=== PATIENT | male | born 1940 | race Caucasian/White ===

== ENCOUNTER 2017-01-13 11:08 | Inpatient (IN) | payer MEDICARE, OTHER ==
--- NOTE | ~2017-01-13 | CN ---
Consultation Report [facility] [address] [place]. [address] NAME: JASIEL MOHAMUD : 39 STATUS : ADM IN PAT#: [id number] AGE: 76 ADM/REG DATE : 01/13/17 MR#: [id number] REPORT SERV DATE: 01/14/17 DICTATED BY: DELVIN HAIDER DATE: 01/14/17 REPORT STATUS : Draft TRANSCRIBED BY: MODAlvino DATE: 01/14/17 CARDIOLOGY CONSULTATION DATE OF CONSULTATION: INDICATION: Atrial flutter, rapid ventricular response; abnormal ECG; elevated troponins. HISTORY: The patient is a 76-year-old white male, normally followed by my partner, Dr. Watkins. He has a history of atrial arrhythmias with an atrial flutter ablation 04/13/2016 and atypical recurrence in the fall of 2015 with cardioversion 07/11/2016. At his last echo, his EF was 50-55%. There was mild RV systolic dysfunction. He has had previous low risk vasodilators stress test 02/20/2016. He does have calcific atherosclerosis of the abdominal aorta. He has had previous endarterectomies by Dr. Andrews. He has underlying type 2 diabetes mellitus. The patient states he was awakened from sleep with substernal chest discomfort and an irregular heart rate. He was taken to [facility] and subsequently transferred to [facility]. At [place], he was told he had pneumonia in the left lung field. He has had a slight cough, but it has not produced any purulent sputum. At this time, he is asymptomatic. Heart rate is in the 80 beats per minute range and irregular. He believes that he has been in sinus rhythm since May, although I do not have documentation of that. CURRENT HOME MEDICATIONS: Ascorbic acid 500 per day, B Complex daily, benazepril 40 a day, cholecalciferol 1000 per day, diltiazem ER 180 a day, folic acid 400 per day, insulin glargine q.a.m., metformin 850 b.i.d., omeprazole 20 a day, rivaroxaban 20 a day. ALLERGIES OR INTOLERANCES: Codeine, streptomycin, and clopidogrel (diarrhea). SOCIAL HISTORY: Smokes a pack per day x60 years. He is and lives alone. He has a younger sister, Gaby, who is a retired nurse from [employer] in attendance. FAMILY HISTORY: Mother had atrial fibrillation. Father had a stroke. PAST MEDICAL HISTORY/REVIEW OF SYSTEMS: Chronic atrial fibrillation according to notes, elevated troponins on current ECG with a level of 0.38 on the most recent labs. Community- acquired pneumonia, COPD with bronchiectasis, and history of peripheral vascular disease with left carotid endarterectomy. He has a history of systemic hypertension. PHYSICAL EXAMINATION: GENERAL: A 76-year-old white male, pleasant, alert, no acute distress. VITAL SIGNS: Blood pressure 148/66, pulse 78 and irregular. HEENT: He is normocephalic. There is no pallor. Sclerae white. Consultation Report [address] [place]. [address] NAME: JASIEL MOHAMUD : 39 STATUS : ADM IN [facility]#: [id number] AGE: 76 ADM/REG DATE : 01/13/17 MR#: [id number] REPORT SERV DATE: 01/14/17 DICTATED BY: DELVIN HAIDER DATE: 01/14/17 REPORT STATUS : Draft TRANSCRIBED BY: PACO DATE: 01/14/17 NECK: JVD is not elevated. There are no carotid bruits. CHEST: There is bilateral decreased breath sounds at the bases, right greater than left. CARDIAC: S1 variable, S2 singular. No gallops. ABDOMEN: Soft. EXTREMITIES: With trace edema. NEUROLOGIC: No focal deficits. MUSCULOSKELETAL: No kyphosis. There is sarcopenia throughout. LABORATORY DATA: ECG shows atrial fibrillation, presently with reasonable rate control. His initial ECG showed inverted T-waves in the precordial leads. BUN 13, creatinine 0.66. White count 7.7, hemoglobin 12.2. Baseline troponin 0.02, repeat 0.38. IMPRESSION: A 76-year-old white male with recent normal MPI, chronic underlying atrial fibrillation, diabetes mellitus, and dyslipidemia, now with ECG repolarization changes and elevated troponins. We will plan coronary angiography tomorrow. Hold Xarelnita carmichael. Risks and benefits have been discussed. PAPI/PACO Delvin Haider M.D. / [id number] CC: David Garcia M.D. [facility]
--- NOTE | ~2017-01-13 | DS ---
Discharge Summary [facility] [address] [place]. [address] NAME: JASIEL MOHAMUD : 39 STATUS : DIS IN PAT#: [id number] AGE: 76 ADM/REG DATE : 01/13/17 MR#: [id number] REPORT SERV DATE: 01/22/17 DICTATED BY: JAI SOTO DATE: 01/18/17 REPORT STATUS : Draft TRANSCRIBED BY: MODAlvino DATE: 01/18/17 ADMISSION DATE: 01/13/2017 DISCHARGE DATE: 01/18/2017 DISCHARGE DIAGNOSES: 1. Acute on chronic hypoxemic hypercapnic respiratory failure. 2. Community-acquired pneumonia. 3. Acute exacerbation of chronic obstructive pulmonary disease. 4. Acute exacerbation of bronchiectasis. 5. Lej-KJ-efullansm myocardial infarction. 6. Chronic atrial fibrillation. 7. Peripheral vascular disease with a left carotid endarterectomy. 8. Hypertension. 9. Type 2 diabetes mellitus with neuropathy. 10.Previous left carotid endarterectomy with disease. 11.Gastroesophageal reflux. 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 13.Prostate cancer post radiation therapy. 14.Voiding dysfunction post prostate cancer history. 15.History of colon polyps. 16.History of diverticulosis. 17.Fatty liver disease on imaging. 18.Gait disorder with history of falls and recurrent cane use. 19.Asymptomatic cholelithiasis. 20.Right ventricular systolic dysfunction documented on previous echo. CONSULTANTS DURING THIS HOSPITALIZATION: Dr. Juan Haider of Cardiology. INVASIVE PROCEDURES DONE DURING THIS HOSPITALIZATION: Cardiac catheterization with an RCA bare-metal stent. BRIEF HISTORY OF PRESENT ILLNESS: The patient is a 76-year-old white male, presented with some chest pain, shortness of breath, and respiratory failure, so he was admitted. For detailed history and physical exam, please see note dictated by Dr. Juan Ladd on 01/13/2017. HOSPITAL COURSE: After being admitted to the hospital, this patient was initially started on aggressive nebulizing treatments and also given broad-spectrum antibiotics. Blood cultures were done, which remained negative. Procalcitonin was normal as well. This patient then developed some cardiorespiratory distress, had a bump in his troponin, and was thought to have a byx-HN-bqgehgsan myocardial infarction. Cardiac catheterization was done and a bare- metal stent was deployed. Post cardiac catheterization, this patient had worsening of his respiratory failure and became more hypercapnic and had to be transferred to the intermediate care unit and BiPAP therapy was initiated within 24-48 hours of BiPAP therapy. This patient's respiratory condition in improved. When I took over this patient's care on 01/17/2017, this patient was doing well. He was already off the BiPAP. He was saturating Discharge Summary [place] [address] [place]. [address] NAME: JASEIL MOHAMUD : 39 STATUS : DIS IN PAT#: [id number] AGE: 76 ADM/REG DATE : 01/13/17 MR#: [id number] REPORT SERV DATE: 01/22/17 DICTATED BY: JAI SOTO DATE: 01/18/17 REPORT STATUS : Draft TRANSCRIBED BY: PACO DATE: 01/18/17 normal on minimal amounts of O2. He was transitioned from the [facility] to the intermediate care unit. Cardiology signed off his care after 24 hours and recommended continuing medications. He has been placed on Xarelto and Brilinta for the stent as well as his chronic atrial fibrillation. This patient is doing well. He is currently off O2. Physical therapy has seen the patient and patient is looking to be transferred to rehab. He remained stable medically otherwise and is being discharged in stable condition. DISCHARGE DISPOSITION: To rehab. DISCHARGE ACTIVITY: Per facility. DISCHARGE DIET: 1800-calorie [employer] diet. DISCHARGE MEDICATIONS: Vitamin C 500 mg once daily, benazepril 40 mg once daily, aspirin 81 mg once daily, Lipitor 40 mg once daily, Omnicef 300 mg twice daily for three more days to finish a course for treatment of pneumonia, vitamin D3 1000 units once daily, diltiazem ER 180 mg once daily, folic acid 400 mcg once daily, Lantus 30 units subcu once every morning, Lopressor 25 mg every eight hours, Lantus 4 units subcu at bedtime, Prilosec 20 mg once daily, Xarelto 15 mg once daily, Brilinta 90 mg every 12 hours, vitamin B Complex Stresstabs, Pulmicort Respules 1 mg twice daily, DuoNebs every four hours, metformin 850 mg p.o. twice daily. DISCHARGE FOLLOWUP: With Dr. John as scheduled by him. With primary care physician post rehab. More than 30 minutes spent planning this patient's discharge, reconciling medications, signing all forms for rehab, and documenting this discharge. ADDENDUM HOSPITAL COURSE: This patient was kept two days extra in the hospital awaiting a bed at [facility], however, even today that there are no beds available at [facility]. The patient's choice would change to [facility]. The patient is accepted to [facility] and will be transferred to [facility]. No other changes were made. He has finished the course of his Omnicef and Omnicef will be discontinued at discharge. He remained stable otherwise and is being discharged in stable condition. SETH/PACO Jai Soto M.D. / [id number] / [id number] CC: Discharge Summary [address] [address] NAME: JASIEL MOHAMUD : 39 STATUS : DIS IN PAT#: [id number] AGE: 76 ADM/REG DATE : 01/13/17 MR#: [id number] REPORT SERV DATE: 01/22/17 DICTATED BY: JAI SOTO DATE: 01/18/17 REPORT STATUS : Draft TRANSCRIBED BY: PACO DATE: 01/18/17 David Adan Jr., M.D.
--- NOTE | ~2017-01-13 | HP ---
History And Physical [place] [id number] [place]. [address] NAME: JASIEL SALGADO : 39 STATUS : ADM IN [facility]#: [id number] AGE: 76 ADM/REG DATE : 01/13/17 MR#: [id number] REPORT SERV DATE: 01/13/17 DICTATED BY: JUAN LADD DATE: 01/13/17 REPORT STATUS : Draft TRANSCRIBED BY: MODL DATE: 01/13/17 DATE OF ADMISSION: 01/13/2017 CHIEF COMPLAINT: This is a 76-year-old white male, resident of [facility], who is taken in transfer from [facility] Emergency Room with pneumonia and atrial fibrillation. The history was obtained from the ER physician at [facility], Dr. Jefferson, as well as from the patient in his room, his niece in his room, and review of medical records on [facility]. 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 He has been cutting brush and burning it with the assistance of someone else about 8 hours per day. He has been doing this for the last several days. He normally has some cough. He has had more cough over the last few days associated with some discolored sputum, but no blood. He has had some shortness of breath. On more than one occasion, he has had some dizziness and near syncope, and has had to sit down with improvement in his symptoms. He does not report any fever or chills. He normally has daytime and nighttime sweats which is unchanged. He got up to go to the bathroom early this morning. He began having some left chest pain which hurt when he took a deep breath. There was also a constant nature to it. He became more short of breath. He went to the [facility] Emergency Room. Initial evaluation there, O2 saturation 91% at 0435 hours, blood pressure 182/102, temp 97.8, pulse 145, respirations 20. At that facility, his evaluation included chemistries, blood gases, chest x-ray, EKG, and CTA chest. Working diagnoses, atrial fibrillation/flutter with rapid ventricular response and pneumonia. Cultures were obtained. He was started on azithromycin and ceftriaxone. He was given a DuoNeb. He was given Cardizem boluses 10 mg x3. He was given aspirin, morphine, and Zofran. The intake center was called, and after my conversation with Dr. Jefferson, he was transferred here for further evaluation. In addition to the above, he has been experiencing some fatigue. He has some pain in his left greater than right lower extremity with activity. He has been using a cane because of imbalance and falls, but has not fallen in the last 3 months. He does not cough or choke with eating. He generally sleeps propped up and does not have nighttime regurgitation. He is not on O2 at home, nor does he use a CPAP. He did have a flu shot this year. He has never had pneumococcal vaccination. He does not recall pneumonia as an adult. History And Physical [address] [address] NAME: JASIEL SALGADO : 39 STATUS : ADM IN [facility]#: [id number] AGE: 76 ADM/REG DATE : 01/13/17 MR#: [id number] REPORT SERV DATE: 01/13/17 DICTATED BY: JUAN LADD DATE: 01/13/17 REPORT STATUS : Draft TRANSCRIBED BY: PACO DATE: 01/13/17 ADDITIONAL PAST HISTORY: 1. Recurrent atrial fibrillation/flutter. Documented left atrial thrombus in January. Treated with anticoagulation. Repeat echo in March, no thrombus and subsequent cardioversion in April. Recurrent atrial arrhythmias in July requiring cardioversion. 2. COPD. 3. Bronchiectasis. 4. Hypertension. 5. Diabetes. 6. Question neuropathy. 7. Carotid disease without previous stroke, but previous left carotid endarterectomy. 8. Peripheral arterial disease with left greater than right claudication. 9. GERD, on PPI. 10.Elevated globulins. 11.Prostate cancer, treated with radiation therapy. 12.Voiding dysfunction post prostate cancer treatment. 13.History of colon polyps. 14.History of diverticulosis without diverticulitis. 15.Fatty liver on CT. 16.History of aspirin-induced ulcer with bleed. 17.Gait disorder with falls as noted. 18.Asymptomatic cholelithiasis. 19.Possible right ventricular systolic dysfunction per previous echoes. PAST SURGICAL HISTORY: See above. SOCIAL HISTORY: He lives on his farm in [facility]. He has no animals. He is . He has no children. He functions independently. FAMILY HISTORY: Sister is a nurse at [employer] and living. Another sister with pancreatic cancer. A brother with COPD and lung cancer. Mother with SD and stroke. Father with stroke with history of colon cancer. HABITS: He smokes daily, but does not use alcohol. ALLERGIES: INTOLERANCE, PLAVIX AND STREPTOMYCIN. MEDICATIONS: Pending pharmacy review. Aspirin 81 mg daily, benazepril 40 mg daily, diltiazem 180 mg daily, flecainide 100 mg daily, Lantus SoloSTAR 30 units in the morning and 4 units in the evening, metformin 850 mg twice daily, omeprazole 20 mg daily, simvastatin 20 mg daily, B12 500 mcg, folic acid 400 mcg daily, vitamin C 1000 mg daily, vitamin D daily, Xarelto 20 mg daily. REVIEW OF SYSTEMS: Complete, done with the patient in room 6105 and negative except as noted. PHYSICAL EXAMINATION: History And Physical [address] [address] NAME: JASIEL SALGADO : 39 STATUS : ADM IN [facility]#: [id number] AGE: 76 ADM/REG DATE : 01/13/17 MR#: [id number] REPORT SERV DATE: 01/13/17 DICTATED BY: JUAN LADD DATE: 01/13/17 REPORT STATUS : Draft TRANSCRIBED BY: PACO DATE: 01/13/17 VITAL SIGNS: Admission sat 92% on 2 L, blood pressure 130/62, temperature 97.8, pulse is 71 and irregular, respirations 20. GENERAL: This is a stated age-appearing white male, who is alert, conversant, appropriate, and can give, per niece who is present, accurate details of his history. SKIN: Warm and dry. TRUNK: Cool distal extremities, particularly feet. No rash, petechiae, or ecchymoses. NODES: No palpable axillary, cervical, or inguinal. HEENT: Atraumatic with symmetric facies. Lids, sclerae, and conjunctivae, negative. No xanthelasma, scleral icterus, or conjunctival petechiae. Pupils are equal, round, and reactive to light. Extraocular movements intact. Hearing intact. External ears, negative. Cannot see TMs. Nose, negative. Anterior nares clear. Nasal O2 present. Lips, mucosa, tongue, soft palate and posterior pharynx, negative. He has an upper and lower plate. NECK: No visible JVD or asymmetry. No palpable mass, goiter, or tenderness. Trachea midline. Nontender. LUNGS: Diminished breath sounds bilaterally with few faint bilateral basilar rales. CHEST: No deformities. BREASTS: No gynecomastia. HEART: PMI not palpable. Irregular rhythm. Distant tones. No murmur, gallop, rub, or click. Pulses 2+ radial, carotid and femoral. 1+ popliteal. Absent dorsalis pedis and posterior tibial. ABDOMEN: Epigastric tenderness to palpation. Cannot feel liver, spleen, kidneys, or aortic pulsation. EXTREMITIES: Upper and lower extremities, no active synovitis, clubbing, or edema. NEUROLOGIC: Mental status normal. Cranial nerves 2 through 12 normal. Deep tendon reflexes, 1+ brachioradialis. Otherwise, DTRs absent. Symmetric strength. Intact touch. PSYCHIATRIC: Appropriate mood and affect. DATA: From [facility]: Arterial blood gases, pH 7.268, pCO2 of 62, PO2 of 51. Urinalysis positive for protein and 5-10 red cells, 2-5 white cells per high-powered field. Sodium 136, potassium 4.5, chloride 100, CO2 of 30.7, BUN 10, creatinine 0.7, glucose 185, calcium 9.3. Total bilirubin 0.4, AST 39, ALT 28, alkaline phosphatase 107. BNP 792. Total protein 8.6, albumin 3.9, globulins 4.7, PT 11.9, PTT 27.8. White count 9.7, hemoglobin 14.4, platelets 176,000. Chest x-ray by report; mild diffuse interstitial infiltrates, question edema; COPD; right pleural fluid. CTA chest per report, no CTA evidence of aortic dissection or pulmonary embolus. Moderately severe paraseptal and central lobular emphysema. Bullous disease of the right lower lung. Nonspecific ground- glass opacities which may be consistent with infection or inflammation. Bilateral posterior layering pleural effusions, larger on the right. Patchy infiltrates or atelectasis of both lower lobes and bilateral lower lobe bronchiectasis. Extensive atherosclerotic mediastinal vascular calcification of aorta, branch vessels, coronary arteries, and abdominal aorta. Healed granulomatous disease and fatty infiltration of the liver. EKG, atrial flutter with rapid ventricular response and delayed anterior R-wave progression. No acute ST-segment changes. ASSESSMENT: This is a 76-year-old white male with: 1. Acute hypoxemic and hypercapnic respiratory failure with multifactorial etiology. 2. Community-acquired pneumonia. History And Physical [address] [address] NAME: JASIEL SALGADO : 39 STATUS : ADM IN PAT#: [id number] AGE: 76 ADM/REG DATE : 01/13/17 MR#: [id number] REPORT SERV DATE: 01/13/17 DICTATED BY: JUAN LADD DATE: 01/13/17 REPORT STATUS : Draft TRANSCRIBED BY: PACO DATE: 01/13/17 3. Acute exacerbation of chronic obstructive pulmonary disease. 4. Acute exacerbation of bronchiectasis. 5. Chest pain with pleuritic component. 6. Recurrent atrial flutter with past history as described, on chronic Xarelto. 7. Hypertension. 8. Diabetes. 9. Possible neuropathy by exam. 10.Carotid disease with previous left carotid endarterectomy. 11.Peripheral arterial disease, left greater than right claudication. 12.Gastroesophageal reflux disease. 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 14.Prostate cancer, post RT. 15.Voiding dysfunction post prostate cancer history. 16.History of colon polyps. 17.History of diverticulosis. 18.Fatty liver on CT imaging. 19.History of aspirin-induced ulcer with bleed. 20.Gait disorder with history of falls and current cane use. 21.Asymptomatic cholelithiasis. 22.Elevated BNP. 23.Previous documented right ventricular systolic dysfunction. PLAN: Cultures were obtained at [facility]. He was started on azithromycin and ceftriaxone. This will be continued. Begin DuoNeb. Begin Brovana and budesonide nebs. Give a single dose of Bumex. Followup arterial blood gases this afternoon after Bumex and aerosols. Continue home medications. Get Cardiology followup regarding his recurrent atrial arrhythmias. Follow up abnormal data in a.m. Further diagnostic and therapeutic recommendations pending above. DD/MODL Juan Ladd M.D. / [id number] CC: Juan Ladd M.D.
[~2017-01-13 11:08] MED LIST: ASA5GR PO; ASAB PO; B12250T PO; DILT-XR180 MG PO; DILT-XR240 MG PO; FLECAINIDE100 MG PO; FOLIC ACID400 MC1 PO; GLUCPH8 PO; LANTUSCART SC; LOTE40 PO; PRILO PO; VITAMIN C100 M1 PO; VITAMIN D31000 UNIT PO; XARELTO20 MG PO; ZOCOR20 PO
[2017-01-13] MEDS ORDERED: CARTIA XT180 MG/24 PO (14:06)
[2017-01-13] MEDS ORDERED: GLUCPH8 PO (14:07)
[2017-01-13] MEDS ORDERED: PRILO PO (14:07)
[2017-01-13] MEDS ORDERED: LOTE40 PO (14:07)
[2017-01-13] MEDS ORDERED: XARELTO20 MG PO (14:07)
[2017-01-13] MEDS ORDERED: LANTUS SC ×2 (14:07→14:08)
[2017-01-13] MEDS ORDERED: SUPER B COMP PO (14:08)
[2017-01-13] MEDS ORDERED: VITC500 PO (14:08)
[2017-01-13] MEDS ORDERED: VITAMIN D31000 UNIT PO (14:08)
[2017-01-13] MEDS ORDERED: FOLIC ACID400 MC1 PO (14:08)
[2017-01-13 16:00] LABS: ASCORBIC ACID (UR NOT ORDER) 20 (NEG); BILIRUBIN, URINE NEGATIVE (NEG); KETONE, URINE NEGATIVE (NEG); LEUKOCYTE ESTERASE(NOT OR NEG (NEG); WBC (NOT ORDERED) (RFLEX) 1 (0-5)
[2017-01-14 06:05] LABS: BASOPHILS 0.5 %; BASOPHILS ABSOLUTE 0.04 10/3/uL (0.0-0.16); EOSINOPHILS 2.3 %; EOSINOPHILS ABSOLUTE 0.18 10/3/uL (0.0-0.53); HEMOGLOBIN 12.2 g/dL (13.6-17.8); IMMATURE GRANULOCYTES 0.3 %; IMMATURE GRANULOCYTES ABSOLUTE 0.02 10/3/uL (0.0-0.11); LYMPHOCYTES 12.3 %; LYMPHOCYTES ABSOLUTE 0.95 10/3/uL (0.67-4.30); MEAN CORPUS HGB CONC 31.9 g/dL (32.0-36.0); MEAN CORPUSCULAR HEMOGLOB 30.3 pg (26.0-34.0); MEAN PLATELET VOLUME 9.9 fL (9.2-13.0); MONOCYTES 10.5 %; MONOCYTES ABSOLUTE 0.81 10/3/uL (0.21-1.20); NEUTROPHILS 74.1 %; PLATELET COUNT 308 10/3/uL (150-400); RBC DISTRIBUTION WIDTH 13.9 % (12.0-16.0); RED CELL COUNT 4.02 10/6/uL (4.7-6.1); WHITE BLOOD CELLS 7.7 10/3/uL (4.5-10.5)
[2017-01-14 06:10] LABS: HEMATOCRIT 38.2 % (40.0-51.0); MANUAL DIFF NO %
[2017-01-14 06:26] LABS: CALCIUM, SERUM 8.8 MG/DL (8.5-10.4); CHLORIDE, SERUM 102 MMOL/L (96-112); CO2 (CARBON DIOXIDE) 31 MMOL/L (24-34); CREATININE 0.66 MG/DL (0.70-1.30); GFR AFRICAN AMERICAN 108 ML/MIN (>=60); GFR NON AFRICAN AMERICAN 93 ML/MIN (>=60); GLUCOSE, SERUM 128 MG/DL (60-99); POTASSIUM, SERUM 4.4 MMOL/L (3.5-5.3); SODIUM, SERUM 138 MMOL/L (135-148)
[2017-01-14 06:28] LABS: T PROTEIN (ELECT)(NOT OR 6.5 G/DL (6.0-8.5)
[2017-01-14 06:29] LABS: BUN (BLOOD UREA NITROGEN) 13 MG/DL (6-23); C-REACTIVE PROTEIN < 2.9 MG/L (<8.0); TROPONIN I 0.38 NG/ML (<0.05)
[2017-01-14 07:30] LABS: PROCALCITONIN <0.05 ng/mL (<0.5)
[2017-01-14 12:54] LABS: A/G 1.18 RATIO (0.9-2.10); ALB RELATIVE % 54.2 % (60.0-89.0); ALBUMIN (ELECTRO) 3.52 GM/DL (3.2-5.5); ALPHA 1 (ELECTRO) 0.16 GM/DL (0.1-0.4); ALPHA 1 RELAT % (NOT ORD) 2.4 % (1.0-4.0); ALPHA 2 (ELECTRO) 0.97 GM/DL (0.5-1.10); ALPHA 2 RELAT % 14.9 % (4.5-26.0); BETA GLOBULIN (SPE) 0.72 GM/DL (0.60-1.30); GAMMA GLOBULIN (SPE) 1.14 G/DL (0.70-1.60); GAMMA RELAT % 17.5 % (6.0-22.0)
[2017-01-14 18:01] LABS: BASOPHILS 0.5 %; BASOPHILS ABSOLUTE 0.05 10/3/uL (0.0-0.16); EOSINOPHILS 1.3 %; EOSINOPHILS ABSOLUTE 0.14 10/3/uL (0.0-0.53); HEMATOCRIT 39.4 % (40.0-51.0); HEMOGLOBIN 12.8 g/dL (13.6-17.8); IMMATURE GRANULOCYTES 0.2 %; IMMATURE GRANULOCYTES ABSOLUTE 0.02 10/3/uL (0.0-0.11); LYMPHOCYTES 10.5 %; LYMPHOCYTES ABSOLUTE 1.15 10/3/uL (0.67-4.30); MEAN CORPUS HGB CONC 32.5 g/dL (32.0-36.0); MEAN CORPUSCULAR HEMOGLOB 30.7 pg (26.0-34.0); MEAN CORPUSCULAR VOLUME 94.5 fL (80-100); MEAN PLATELET VOLUME 10.3 fL (9.2-13.0); MONOCYTES 10.8 %; MONOCYTES ABSOLUTE 1.19 10/3/uL (0.21-1.20); NEUTROPHILS 76.7 %; NEUTROPHILS ABSOLUTE 8.43 10/3/uL (2.02-8.40); PLATELET COUNT 332 10/3/uL (150-400); RBC DISTRIBUTION WIDTH 14.1 % (12.0-16.0); RED CELL COUNT 4.17 10/6/uL (4.7-6.1)
[2017-01-14 18:02] LABS: MANUAL DIFF NO %
[2017-01-14 18:07] LABS: INTERNATIONAL NORMAL RATI 1.3 UNITS (-); PARTIAL THROMBO TIME 35.3 SEC (22.5-37.2); PROTIME (NOT ORD) 15.9 SEC (12.0-14.5)
[2017-01-15 05:21] LABS: BUN (BLOOD UREA NITROGEN) 14 MG/DL (6-23); CALCIUM, SERUM 8.8 MG/DL (8.5-10.4); CHLORIDE, SERUM 101 MMOL/L (96-112); CHOL/HDL RATIO(NOT ORDER) 1.9 (0-5); CHOLESTEROL 121 MG/DL (< 200); CO2 (CARBON DIOXIDE) 29 MMOL/L (24-34); CREATININE 0.63 MG/DL (0.70-1.30); GFR AFRICAN AMERICAN 110 ML/MIN (>=60); GFR NON AFRICAN AMERICAN 95 ML/MIN (>=60); HDL CHOLESTEROL 63 MG/DL (> 39); LDL CHOLESTEROL 47 MG/DL (< 130); NON-HDL CHOLESTEROL 58 MG/DL (< 160); POTASSIUM, SERUM 4.3 MMOL/L (3.5-5.3); SODIUM, SERUM 138 MMOL/L (135-148); TRIGLYCERIDE 56 MG/DL (< 150)
[2017-01-15 05:24] LABS: BASOPHILS 0.9 %; BASOPHILS ABSOLUTE 0.08 10/3/uL (0.0-0.16); EOSINOPHILS 3.9 %; EOSINOPHILS ABSOLUTE 0.33 10/3/uL (0.0-0.53); HEMATOCRIT 38.4 % (40.0-51.0); HEMOGLOBIN 12.4 g/dL (13.6-17.8); IMMATURE GRANULOCYTES 0.4 %; IMMATURE GRANULOCYTES ABSOLUTE 0.03 10/3/uL (0.0-0.11); LYMPHOCYTES 14.2 %; MEAN CORPUS HGB CONC 32.3 g/dL (32.0-36.0); MEAN CORPUSCULAR HEMOGLOB 30.4 pg (26.0-34.0); MEAN CORPUSCULAR VOLUME 94.1 fL (80-100); MEAN PLATELET VOLUME 10.4 fL (9.2-13.0); MONOCYTES ABSOLUTE 1.01 10/3/uL (0.21-1.20); NEUTROPHILS 68.6 %; NEUTROPHILS ABSOLUTE 5.78 10/3/uL (2.02-8.40); PLATELET COUNT 288 10/3/uL (150-400); RBC DISTRIBUTION WIDTH 14.1 % (12.0-16.0); RED CELL COUNT 4.08 10/6/uL (4.7-6.1); WHITE BLOOD CELLS 8.4 10/3/uL (4.5-10.5)
[2017-01-15 05:27] LABS: GLUCOSE, SERUM 90 MG/DL (60-99)
[2017-01-15 05:37] LABS: MANUAL DIFF NO %
[2017-01-15 14:39] LABS: B NATRIURETIC PEPTIDE (BNP) 70.2 PG/ML (< 100.0)
[2017-01-15 17:26] LABS: CK-MB 2.6 NG/ML; CPK 92 U/L (0-200)
[2017-01-15 21:42] LABS: ALLENS TEST Pos; BE (BASE EXCESS) -5.1 MEQ/L (0 +/- 2.5); CARBOXYHEMOGLOBIN 1.6 % (0-3); DEVICE NC; HCO3 (ACTUAL BICARBONATE) 22.7 MEQ/L (23-27); HEMOBLOGIN CONTENT 14.3 G/DL (14-18); INSTRUMENT SERIAL # 8087; METHEMOGLOBIN 0.3 % (0-3); O2 CONTENT 16.5 VOL% (18-24); OPERATOR ID 17370; PCO2 (CO2 TENSION) 53 MMHG (35-45); PO2 (O2 TENSION) 55 MMHG (79-93); SAMPLE Arterial; pH 7.25 (7.37-7.43)
[2017-01-15 22:06] LABS: BASOPHILS 0.5 %; BASOPHILS ABSOLUTE 0.07 10/3/uL (0.0-0.16); EOSINOPHILS 0.7 %; HEMOGLOBIN 14.2 g/dL (13.6-17.8); IMMATURE GRANULOCYTES 0.5 %; IMMATURE GRANULOCYTES ABSOLUTE 0.07 10/3/uL (0.0-0.11); LYMPHOCYTES ABSOLUTE 1.09 10/3/uL (0.67-4.30); MEAN CORPUS HGB CONC 32.4 g/dL (32.0-36.0); MEAN CORPUSCULAR HEMOGLOB 30.8 pg (26.0-34.0); MEAN PLATELET VOLUME 10.3 fL (9.2-13.0); MONOCYTES 7.3 %; NEUTROPHILS ABSOLUTE 11.36 10/3/uL (2.02-8.40); PLATELET COUNT 352 10/3/uL (150-400); RBC DISTRIBUTION WIDTH 14.3 % (12.0-16.0); RED CELL COUNT 4.61 10/6/uL (4.7-6.1)
[2017-01-15 22:11] LABS: HEMATOCRIT 43.8 % (40.0-51.0); MANUAL DIFF NO %; WHITE BLOOD CELLS 13.7 10/3/uL (4.5-10.5)
[2017-01-15 22:18] LABS: BUN (BLOOD UREA NITROGEN) 12 MG/DL (6-23); CALCIUM, SERUM 8.7 MG/DL (8.5-10.4); CHLORIDE, SERUM 103 MMOL/L (96-112); CO2 (CARBON DIOXIDE) 29 MMOL/L (24-34); CREATININE 0.74 MG/DL (0.70-1.30); GFR AFRICAN AMERICAN 103 ML/MIN (>=60); GFR NON AFRICAN AMERICAN 89 ML/MIN (>=60); GLUCOSE, SERUM 113 MG/DL (60-99); SODIUM, SERUM 137 MMOL/L (135-148)
[2017-01-15 22:34] LABS: PLATELET ESTIMATE ADQ (ADEQUATE); RBC MORPHOLOGY NORM (NORMAL)
[2017-01-16 05:37] LABS: BASOPHILS 0.1 %; BASOPHILS ABSOLUTE 0.01 10/3/uL (0.0-0.16); EOSINOPHILS 0 %; HEMOGLOBIN 12.6 g/dL (13.6-17.8); IMMATURE GRANULOCYTES 0.2 %; IMMATURE GRANULOCYTES ABSOLUTE 0.02 10/3/uL (0.0-0.11); LYMPHOCYTES 4.7 %; LYMPHOCYTES ABSOLUTE 0.49 10/3/uL (0.67-4.30); MEAN CORPUS HGB CONC 32.2 g/dL (32.0-36.0); MEAN CORPUSCULAR HEMOGLOB 30.2 pg (26.0-34.0); MEAN CORPUSCULAR VOLUME 93.8 fL (80-100); MEAN PLATELET VOLUME 10.1 fL (9.2-13.0); MONOCYTES 6.4 %; MONOCYTES ABSOLUTE 0.67 10/3/uL (0.21-1.20); NEUTROPHILS 88.6 %; NEUTROPHILS ABSOLUTE 9.22 10/3/uL (2.02-8.40); PLATELET COUNT 308 10/3/uL (150-400); RED CELL COUNT 4.17 10/6/uL (4.7-6.1); WHITE BLOOD CELLS 10.4 10/3/uL (4.5-10.5)
[2017-01-16 05:38] LABS: A/G RATIO 0.8 (0.7-1.9); ALBUMIN 3.1 G/DL (3.5-5.0); ALKALINE PHOSPHATASE 81 U/L (45-117); BUN (BLOOD UREA NITROGEN) 14 MG/DL (6-23); CALCIUM, SERUM 8.8 MG/DL (8.5-10.4); CHLORIDE, SERUM 101 MMOL/L (96-112); CO2 (CARBON DIOXIDE) 30 MMOL/L (24-34); CREATININE 0.65 MG/DL (0.70-1.30); GFR AFRICAN AMERICAN 109 ML/MIN (>=60); GFR NON AFRICAN AMERICAN 94 ML/MIN (>=60); GLOBULIN 3.9 G/DL (2.5-4.1); GLUCOSE, SERUM 120 MG/DL (60-99); POTASSIUM, SERUM 4.1 MMOL/L (3.5-5.3); SGOT(AST) 28 U/L (5-40); SGPT(ALT) 22 U/L (5-65); SODIUM, SERUM 139 MMOL/L (135-148); TOTAL BILIRUBIN 0.6 MG/DL (0-1.2)
[2017-01-16 05:40] LABS: CPK 120 U/L (0-200); HEMATOCRIT 39.1 % (40.0-51.0); MANUAL DIFF NO %; TROPONIN I 0.39 NG/ML (<0.05)
[2017-01-16 07:56] LABS: HCO3 (ACTUAL BICARBONATE) 26.9 MEQ/L (23-27); INSTRUMENT SERIAL # 8083; PCO2 (CO2 TENSION) 39 MMHG (35-45); PO2 (O2 TENSION) 93 MMHG (79-93); pH 7.46 (7.37-7.43)
[2017-01-16 07:57] LABS: BIPAP 16/6 cm.H2O; CARBOXYHEMOGLOBIN 0.7 % (0-3); METHEMOGLOBIN 0.1 % (0-3); O2 CONTENT 17.7 VOL% (18-24); OPERATOR ID 18801; SAMPLE Arterial
[2017-01-16 10:00] LABS: GLYCOHEMOGLOBIN (HbA1c) 7.6 % (4.7-6.1)
[2017-01-17 05:17] LABS: BASOPHILS 0.5 %; BASOPHILS ABSOLUTE 0.06 10/3/uL (0.0-0.16); EOSINOPHILS 1.1 %; EOSINOPHILS ABSOLUTE 0.12 10/3/uL (0.0-0.53); HEMATOCRIT 37.9 % (40.0-51.0); HEMOGLOBIN 12.3 g/dL (13.6-17.8); IMMATURE GRANULOCYTES 0.2 %; IMMATURE GRANULOCYTES ABSOLUTE 0.02 10/3/uL (0.0-0.11); LYMPHOCYTES 6.4 %; MANUAL DIFF NO %; MEAN CORPUS HGB CONC 32.5 g/dL (32.0-36.0); MEAN CORPUSCULAR HEMOGLOB 29.9 pg (26.0-34.0); MEAN CORPUSCULAR VOLUME 92.2 fL (80-100); MEAN PLATELET VOLUME 10.2 fL (9.2-13.0); MONOCYTES 13.2 %; MONOCYTES ABSOLUTE 1.45 10/3/uL (0.21-1.20); NEUTROPHILS 78.6 %; NEUTROPHILS ABSOLUTE 8.67 10/3/uL (2.02-8.40); PLATELET COUNT 337 10/3/uL (150-400); RBC DISTRIBUTION WIDTH 14.4 % (12.0-16.0); RED CELL COUNT 4.11 10/6/uL (4.7-6.1)
[2017-01-17 05:34] LABS: BUN (BLOOD UREA NITROGEN) 16 MG/DL (6-23); CHLORIDE, SERUM 101 MMOL/L (96-112); CO2 (CARBON DIOXIDE) 28 MMOL/L (24-34); CREATININE 0.72 MG/DL (0.70-1.30); GFR AFRICAN AMERICAN 104 ML/MIN (>=60); GFR NON AFRICAN AMERICAN 90 ML/MIN (>=60); GLUCOSE, SERUM 127 MG/DL (60-99); SODIUM, SERUM 138 MMOL/L (135-148)
[2017-01-18 04:51] LABS: BASOPHILS 0.5 %; BASOPHILS ABSOLUTE 0.05 10/3/uL (0.0-0.16); EOSINOPHILS ABSOLUTE 0.19 10/3/uL (0.0-0.53); HEMATOCRIT 36.3 % (40.0-51.0); IMMATURE GRANULOCYTES 0.3 %; IMMATURE GRANULOCYTES ABSOLUTE 0.03 10/3/uL (0.0-0.11); LYMPHOCYTES 8.5 %; MEAN CORPUS HGB CONC 33.1 g/dL (32.0-36.0); MEAN CORPUSCULAR VOLUME 90.8 fL (80-100); MEAN PLATELET VOLUME 9.9 fL (9.2-13.0); MONOCYTES 13.9 %; MONOCYTES ABSOLUTE 1.31 10/3/uL (0.21-1.20); NEUTROPHILS 74.8 %; NEUTROPHILS ABSOLUTE 7.04 10/3/uL (2.02-8.40); PLATELET COUNT 339 10/3/uL (150-400); WHITE BLOOD CELLS 9.4 10/3/uL (4.5-10.5)
[2017-01-18 04:56] LABS: MANUAL DIFF NO %
[2017-01-18 05:15] LABS: ALBUMIN 2.9 G/DL (3.5-5.0); CALCIUM, SERUM 8.8 MG/DL (8.5-10.4); CHLORIDE, SERUM 101 MMOL/L (96-112); CO2 (CARBON DIOXIDE) 28 MMOL/L (24-34); CREATININE 0.67 MG/DL (0.70-1.30); GFR AFRICAN AMERICAN 107 ML/MIN (>=60); GFR NON AFRICAN AMERICAN 93 ML/MIN (>=60); GLUCOSE, SERUM 139 MG/DL (60-99); PHOSPHORUS, SERUM 2.7 MG/DL (2.5-4.5); POTASSIUM, SERUM 3.6 MMOL/L (3.5-5.3); SODIUM, SERUM 137 MMOL/L (135-148)
[2017-01-18 05:18] LABS: BUN (BLOOD UREA NITROGEN) 21 MG/DL (6-23)
[2017-01-18 07:17] LABS: PROCALCITONIN 0.05 ng/mL (<0.5)
[2017-01-19 05:11] LABS: BASOPHILS 0.4 %; BASOPHILS ABSOLUTE 0.04 10/3/uL (0.0-0.16); EOSINOPHILS 2.9 %; EOSINOPHILS ABSOLUTE 0.28 10/3/uL (0.0-0.53); HEMATOCRIT 38.1 % (40.0-51.0); HEMOGLOBIN 12.7 g/dL (13.6-17.8); IMMATURE GRANULOCYTES 0.3 %; IMMATURE GRANULOCYTES ABSOLUTE 0.03 10/3/uL (0.0-0.11); LYMPHOCYTES 10.2 %; LYMPHOCYTES ABSOLUTE 0.99 10/3/uL (0.67-4.30); MEAN CORPUS HGB CONC 33.3 g/dL (32.0-36.0); MEAN CORPUSCULAR HEMOGLOB 30.5 pg (26.0-34.0); MEAN CORPUSCULAR VOLUME 91.4 fL (80-100); MONOCYTES 11.1 %; MONOCYTES ABSOLUTE 1.08 10/3/uL (0.21-1.20); NEUTROPHILS 75.1 %; NEUTROPHILS ABSOLUTE 7.28 10/3/uL (2.02-8.40); PLATELET COUNT 355 10/3/uL (150-400); RBC DISTRIBUTION WIDTH 13.9 % (12.0-16.0); RED CELL COUNT 4.17 10/6/uL (4.7-6.1); WHITE BLOOD CELLS 9.7 10/3/uL (4.5-10.5)
[2017-01-19 05:13] LABS: MANUAL DIFF NO %
[2017-01-19 05:36] LABS: CALCIUM, SERUM 9.3 MG/DL (8.5-10.4); CHLORIDE, SERUM 104 MMOL/L (96-112); CO2 (CARBON DIOXIDE) 27 MMOL/L (24-34); CREATININE 0.68 MG/DL (0.70-1.30); GFR AFRICAN AMERICAN 107 ML/MIN (>=60); GFR NON AFRICAN AMERICAN 92 ML/MIN (>=60); GLUCOSE, SERUM 158 MG/DL (60-99); SODIUM, SERUM 140 MMOL/L (135-148)
[2017-01-19 05:43] LABS: BUN (BLOOD UREA NITROGEN) 14 MG/DL (6-23)
[2017-01-20 04:48] LABS: ALBUMIN 2.8 G/DL (3.5-5.0); BUN (BLOOD UREA NITROGEN) 15 MG/DL (6-23); CHLORIDE, SERUM 104 MMOL/L (96-112); CO2 (CARBON DIOXIDE) 27 MMOL/L (24-34); CREATININE 0.68 MG/DL (0.70-1.30); GFR AFRICAN AMERICAN 107 ML/MIN (>=60); GFR NON AFRICAN AMERICAN 92 ML/MIN (>=60); GLUCOSE, SERUM 180 MG/DL (60-99); PHOSPHORUS, SERUM 3.3 MG/DL (2.5-4.5); SODIUM, SERUM 135 MMOL/L (135-148)
[2017-01-21 06:48] LABS: ALBUMIN 2.8 G/DL (3.5-5.0); BUN (BLOOD UREA NITROGEN) 16 MG/DL (6-23); CHLORIDE, SERUM 103 MMOL/L (96-112); CO2 (CARBON DIOXIDE) 27 MMOL/L (24-34); CREATININE 0.65 MG/DL (0.70-1.30); GFR AFRICAN AMERICAN 109 ML/MIN (>=60); GFR NON AFRICAN AMERICAN 94 ML/MIN (>=60); GLUCOSE, SERUM 149 MG/DL (60-99); PHOSPHORUS, SERUM 3.3 MG/DL (2.5-4.5); POTASSIUM, SERUM 4.1 MMOL/L (3.5-5.3); SODIUM, SERUM 138 MMOL/L (135-148)
== END 2017-01-21 18:01 | DRG 248 ==
LOC: 6NO 11:08 → SSU2 01-15 16:05 → IMCU 01-15 23:04 → 7NO 01-17 15:38
PROVIDERS: Internal Medicine; Internal Medicine Cardiovascular Disease; Nurse Practitioner
PROC: 02703DZ Dilation of Coronary Artery, One Artery with Intraluminal Device, Percutaneous Approach (ICD-10-PCS; principal; 2017-01-15)
PROC: 4A023N7 Measurement of Cardiac Sampling and Pressure, Left Heart, Percutaneous Approach (ICD-10-PCS; 2017-01-15)
PROC: B2111ZZ Fluoroscopy of Multiple Coronary Arteries using Low Osmolar Contrast (ICD-10-PCS; 2017-01-15)
DX: I21.4 Non-ST elevation (NSTEMI) myocardial infarction (principal); J96.22 Acute and chronic respiratory failure with hypercapnia; J96.21 Acute and chronic respiratory failure with hypoxia; J47.1 Bronchiectasis with (acute) exacerbation; I48.92 Unspecified atrial flutter; E11.40 Type 2 diabetes mellitus with diabetic neuropathy, unspecified; K76.0 Fatty (change of) liver, not elsewhere classified; I48.2 Chronic atrial fibrillation; I73.9 Peripheral vascular disease, unspecified; K21.9 Gastro-esophageal reflux disease without esophagitis; K80.20 Calculus of gallbladder without cholecystitis without obstruction; I10 Essential (primary) hypertension; F17.210 Nicotine dependence, cigarettes, uncomplicated; Z86.010 Personal history of colon polyps; Z85.46 Personal history of malignant neoplasm of prostate; Z92.3 Personal history of irradiation; K57.90 Diverticulosis of intestine, part unspecified, without perforation or abscess without bleeding; R26.9 Unspecified abnormalities of gait and mobility; Z91.81 History of falling; I25.10 Atherosclerotic heart disease of native coronary artery without angina pectoris; Z88.8 Allergy status to other drugs, medicaments and biological substances; Z88.1 Allergy status to other antibiotic agents; Z79.82 Long term (current) use of aspirin; Z79.01 Long term (current) use of anticoagulants; Z88.5 Allergy status to narcotic agent
CPT/HCPCS: 31720; 36600; 70450; 71010; 71020; 80048; 80053; 80061; 80069; 81001; 82550; 82553; 82805; 82962; 83036; 83735; 83880; 84145; 84155; 84165; 84484; 85025; 85347; 85610; 85730; 86140; 87449; 87641; 92928; 93005; 93458; 94640; 94660; 97110-GP; 97116-GP; 97161-GP; 97164-GP; 99152; 99153; A9270-GY; C1725; C1769; C1876; C1887; C1894; G8978-CK-GP; G8979-CI-GP; J0456; J2250; J3010; J3486; Q9967